=== PATIENT | male | born 1975 | race Caucasian/White ===

== ENCOUNTER 2020-09-11 08:11 | Emergency (ER) | payer OTHER ==
[~2020-09-11 08:11] MED LIST: 3IN1 COMMODE; ACID REDUCER 1150 MG PO; DEXILANT30 MG PO; DEXILANT60 MG PO; PRILOSEC20 MG PO
[2020-09-11] MEDS ORDERED: CYCLOBENZAPRINE10 MG PO (10:08)
[2020-09-11] MEDS ORDERED: MOTRIN600 MG PO (10:08)
== END 2020-09-11 10:09 | disposition home or self-care (01) ==
LOC: FER 08:11
DX: M54.6 Pain in thoracic spine (principal); Z88.1 Allergy status to other antibiotic agents; Z85.9 Personal history of malignant neoplasm, unspecified
CPT/HCPCS: 72072; 74022